=== PATIENT | male | born 1960 | race Caucasian/White ===

== ENCOUNTER 2020-12-15 11:17 | Inpatient (IN) ==
[2020-12-15 12:58] LABS: Basophils # 0.1 10*3/uL (0.0-0.2); Basophils % 0.9 % (0.0-0.8); Eosinophils # 0.7 10*3/uL (0.0-0.87); Hematocrit 39.4 VOL% (42.0-52.0); Immature Granulocytes % 0.3 %; Immature Granulocytes Absolute 0.03 #; Lymphocytes # 1.4 10*3/uL (1.4-4.0); Mean Corpuscular Volume 85.5 FL (87-102); Mean Platelet Volume 11.2 FL (9.6-12.0); Monocytes % 7.3 % (1.7-12.7); Neutrophils % 73.5 % (38.7-73.9); Platelet Count 270 T/CUMM (130-400); Red Blood Count 4.61 MC/CUMM (3.8-5.5); Red Cell Distribution Width 14.2 % (9.3-17.3); White Blood Count 11.3 T/CUMM (4-12)
[2020-12-15 13:33] LABS: Albumin 3.3 G/DL (3.4-5.0); Bilirubin,Total 0.6 MG/DL (0.20-1.00); Calcium 9.3 MG/DL (8.5-10.1); Osmolality,Calculated 253.2 MOS/KG (273-304); Total Protein 8.2 G/DL (6.4-8.2)
[2020-12-15] MEDS ORDERED: GLUCAGON 1 MG VIAL IM PRN (15:06)
[2020-12-15] MEDS ORDERED: DEXTROSE 50% 25 GM/50 ML VIAL IV PRN (15:06)
[2020-12-15] MEDS ORDERED: BISACODYL 5 MG TABLET PO PRN (15:07)
[2020-12-15] MEDS ORDERED: ALBUTEROL 2.5 MG/3 ML NEB RESP TX PRN (15:07)
[2020-12-15] MEDS ORDERED: ONDANSETRON 4 MG/2 ML VIAL IV PRN (15:07)
[2020-12-15] MEDS ORDERED: ACETAMINOPHEN 325 MG TABLET PO PRN (15:07)
[2020-12-15] MEDS: ENOXAPARIN 40 MG/0.4 ML SYRINGE SUBCUT SCH (17:20)
[2020-12-15] MEDS: SODIUM CHLORIDE 0.9% 1,000 ML IV SCH (17:20)
[2020-12-15] MEDS: MORPHINE 2 MG/1 ML SYRINGE IV PRN ×2 (19:46→23:38)
[2020-12-15] MEDS: CETIRIZINE 10 MG TABLET PO SCH (21:35)
[2020-12-16 05:34] LABS: Basophils # 0.1 10*3/uL (0.0-0.2); Basophils % 0.8 % (0.0-0.8); Eosinophils % 14.2 % (0.00-10.9); Hematocrit 37.3 VOL% (42.0-52.0); Hemoglobin 12.4 GM/DL (14.0-18.0); Immature Granulocytes % 0.4 %; Immature Granulocytes Absolute 0.05 #; Lymphocytes # 1.8 10*3/uL (1.4-4.0); Lymphocytes % 12.7 % (21.2-54.2); Mean Corpuscular HGB Conc 33.2 GM/DL (32-36); Mean Corpuscular Volume 86.1 FL (87-102); Monocytes % 6.4 % (1.7-12.7); Neutrophils % 65.5 % (38.7-73.9); Platelet Count 272 T/CUMM (130-400); Red Blood Count 4.33 MC/CUMM (3.8-5.5); Red Cell Distribution Width 14.5 % (9.3-17.3); White Blood Count 14.2 T/CUMM (4-12)
[2020-12-16] MEDS: SODIUM CHLORIDE 0.9% 1,000 ML IV SCH ×3 (06:00→17:02)
[2020-12-16 06:09] LABS: Band Neutrophils 4 % (0-10); Bilirubin,Total 0.5 MG/DL (0.20-1.00); Calcium 8.9 MG/DL (8.5-10.1); Eosinophils 15 % (0-10); Lymphocytes 10 % (20-55); Osmolality,Calculated 257.9 MOS/KG (273-304); Platelet Estimate Normal; Potassium 4.4 MMOL/L (3.5-5.1); Segmented Neutrophils 59 % (50-85); Total Cells Counted 100; Total Protein 7.5 G/DL (6.4-8.2)
[2020-12-16 06:10] LABS: Anisocytosis Slight
[2020-12-16] MEDS: MORPHINE 2 MG/1 ML SYRINGE IV PRN ×3 (06:11→20:39)
[2020-12-16] MEDS: CETIRIZINE 10 MG TABLET PO SCH (09:21)
[2020-12-16] MEDS: guaiFENesin/DM ER 600-30 MG TABLET PO PRN (09:21)
[2020-12-16] MEDS: KETOROLAC 30 MG/1 ML VIAL IV PRN ×2 (12:46→18:33)
[2020-12-16] MEDS ORDERED: AZITHROMYCIN 250 MG TABLET PO ONE (13:41)
[2020-12-16] MEDS: ENOXAPARIN 40 MG/0.4 ML SYRINGE SUBCUT SCH (17:00)
[2020-12-16] MEDS: cefTRIAXone 1,000 MG in SODIUM CHLORIDE 0.9% 100 ML IV SCH (18:33)
[2020-12-17] MEDS: KETOROLAC 30 MG/1 ML VIAL IV PRN ×4 (00:26→22:59)
[2020-12-17] MEDS: MORPHINE 2 MG/1 ML SYRINGE IV PRN ×3 (02:55→20:36)
[2020-12-17] MEDS: SODIUM CHLORIDE 0.9% 1,000 ML IV SCH ×2 (05:20→13:49)
[2020-12-17 06:06] LABS: Basophils # 0.1 10*3/uL (0.0-0.2); Basophils % 0.5 % (0.0-0.8); Eosinophils # 1.9 10*3/uL (0.0-0.87); Eosinophils % 17.4 % (0.00-10.9); Hemoglobin 11.4 GM/DL (14.0-18.0); Immature Granulocytes % 0.5 %; Immature Granulocytes Absolute 0.05 #; Lymphocytes # 1.7 10*3/uL (1.4-4.0); Lymphocytes % 15.6 % (21.2-54.2); Mean Corpuscular HGB Conc 32.6 GM/DL (32-36); Mean Corpuscular Volume 87.3 FL (87-102); Mean Platelet Volume 11.1 FL (9.6-12.0); Platelet Count 201 T/CUMM (130-400); Red Blood Count 4.01 MC/CUMM (3.8-5.5); Red Cell Distribution Width 14.4 % (9.3-17.3); White Blood Count 10.9 T/CUMM (4-12)
[2020-12-17 06:20] LABS: Calcium 8.2 MG/DL (8.5-10.1); Osmolality,Calculated 257.9 MOS/KG (273-304); Potassium 4.2 MMOL/L (3.5-5.1)
[2020-12-17 07:06] LABS: Anisocytosis 2+; Band Neutrophils 6 % (0-10); Burr Cells Few; Eosinophils 24 % (0-10); Lymphocytes 16 % (20-55); Ovalocytes Few; Platelet Estimate Normal; Segmented Neutrophils 45 % (50-85); Total Cells Counted 100
[2020-12-17] MEDS: AZITHROMYCIN 250 MG TABLET PO SCH (09:38)
[2020-12-17] MEDS: CETIRIZINE 10 MG TABLET PO SCH (09:38)
[2020-12-17] MEDS ORDERED: PHENOL 1.4% THROAT SPRAY 177 ML BOTTLE PO PRN (11:30)
[2020-12-17] MEDS: cefTRIAXone 1,000 MG in SODIUM CHLORIDE 0.9% 100 ML IV SCH (17:47)
[2020-12-18] MEDS: SODIUM CHLORIDE 0.9% 1,000 ML IV SCH ×3 (03:13→18:00)
[2020-12-18] MEDS: MORPHINE 2 MG/1 ML SYRINGE IV PRN ×3 (05:03→23:26)
[2020-12-18 05:17] LABS: Basophils # 0.1 10*3/uL (0.0-0.2); Basophils % 0.5 % (0.0-0.8); Eosinophils # 1.6 10*3/uL (0.0-0.87); Eosinophils % 15.3 % (0.00-10.9); Hematocrit 38.6 VOL% (42.0-52.0); Hemoglobin 12.6 GM/DL (14.0-18.0); Immature Granulocytes % 0.5 %; Immature Granulocytes Absolute 0.05 #; Lymphocytes # 1.7 10*3/uL (1.4-4.0); Lymphocytes % 15.7 % (21.2-54.2); Mean Corpuscular HGB Conc 32.6 GM/DL (32-36); Mean Corpuscular Volume 87.3 FL (87-102); Mean Platelet Volume 11.1 FL (9.6-12.0); Monocytes % 7.2 % (1.7-12.7); Neutrophils % 60.8 % (38.7-73.9); Platelet Count 225 T/CUMM (130-400); Red Blood Count 4.42 MC/CUMM (3.8-5.5); Red Cell Distribution Width 14.6 % (9.3-17.3); White Blood Count 10.6 T/CUMM (4-12)
[2020-12-18 05:43] LABS: Calcium 8.4 MG/DL (8.5-10.1); Osmolality,Calculated 268.1 MOS/KG (273-304); Potassium 5.6 MMOL/L (3.5-5.1)
[2020-12-18 05:45] LABS: PT Patient Result 10.7 SECS (10.5-12.0)
[2020-12-18 05:47] LABS: Anisocytosis 2+; Band Neutrophils 5 % (0-10); Burr Cells Few; Eosinophils 22 % (0-10); Lymphocytes 15 % (20-55); Macrocytosis Slight; Platelet Estimate Normal; Segmented Neutrophils 52 % (50-85); Total Cells Counted 100
[2020-12-18] MEDS: KETOROLAC 30 MG/1 ML VIAL IV PRN ×2 (06:02→18:00)
[2020-12-18] MEDS: guaiFENesin/DM ER 600-30 MG TABLET PO PRN (09:27)
[2020-12-18] MEDS: AZITHROMYCIN 250 MG TABLET PO SCH (09:27)
[2020-12-18] MEDS: CETIRIZINE 10 MG TABLET PO SCH (09:27)
[2020-12-18] MEDS: cefTRIAXone 1,000 MG in SODIUM CHLORIDE 0.9% 100 ML IV SCH (17:59)
[2020-12-19] MEDS: KETOROLAC 30 MG/1 ML VIAL IV PRN ×3 (04:36→16:50)
[2020-12-19 05:34] LABS: Basophils # 0.1 10*3/uL (0.0-0.2); Basophils % 0.6 % (0.0-0.8); Eosinophils # 1.6 10*3/uL (0.0-0.87); Hematocrit 37.6 VOL% (42.0-52.0); Hemoglobin 12.4 GM/DL (14.0-18.0); Immature Granulocytes % 0.4 %; Immature Granulocytes Absolute 0.05 #; Lymphocytes # 2.2 10*3/uL (1.4-4.0); Lymphocytes % 17.8 % (21.2-54.2); Mean Corpuscular Volume 87.2 FL (87-102); Mean Platelet Volume 11.5 FL (9.6-12.0); Monocytes % 6.4 % (1.7-12.7); Neutrophils % 61.8 % (38.7-73.9); Platelet Count 248 T/CUMM (130-400); Red Blood Count 4.31 MC/CUMM (3.8-5.5); Red Cell Distribution Width 14.6 % (9.3-17.3); White Blood Count 12.4 T/CUMM (4-12)
[2020-12-19 05:58] LABS: Band Neutrophils 1 % (0-10); Eosinophils 20 % (0-10); Hypochromasia 1+; Lymphocytes 16 % (20-55); Microcytosis Slight; Segmented Neutrophils 61 % (50-85); Total Cells Counted 100
[2020-12-19 05:59] LABS: Calcium 8.4 MG/DL (8.5-10.1); Osmolality,Calculated 261.7 MOS/KG (273-304); Ovalocytes Slight; Platelet Estimate Normal; Potassium 4.5 MMOL/L (3.5-5.1)
[2020-12-19] MEDS: MORPHINE 2 MG/1 ML SYRINGE IV PRN ×3 (08:13→20:41)
[2020-12-19] MEDS ORDERED: DIAZEPAM 5 MG TABLET PO ONE (09:00)
[2020-12-19] MEDS: AZITHROMYCIN 250 MG TABLET PO SCH (10:00)
[2020-12-19] MEDS: CETIRIZINE 10 MG TABLET PO SCH (10:00)
[2020-12-19] MEDS: SODIUM CHLORIDE 0.9% 1,000 ML IV SCH (16:13)
[2020-12-19] MEDS: cefTRIAXone 1,000 MG in SODIUM CHLORIDE 0.9% 100 ML IV SCH (17:53)
[2020-12-20] MEDS: KETOROLAC 30 MG/1 ML VIAL IV PRN ×3 (00:51→22:10)
[2020-12-20] MEDS: MORPHINE 2 MG/1 ML SYRINGE IV PRN ×5 (01:47→22:08)
[2020-12-20] MEDS: SODIUM CHLORIDE 0.9% 1,000 ML IV SCH ×2 (01:50→10:37)
[2020-12-20] MEDS: ALBUTEROL/IPRATROPIUM 3 ML NEB RESP TX SCH ×4 (02:31→20:04)
[2020-12-20 06:24] LABS: Basophils # 0.1 10*3/uL (0.0-0.2); Basophils % 0.8 % (0.0-0.8); Eosinophils # 1.5 10*3/uL (0.0-0.87); Eosinophils % 14.5 % (0.00-10.9); Hematocrit 37.7 VOL% (42.0-52.0); Hemoglobin 12.5 GM/DL (14.0-18.0); Immature Granulocytes % 0.5 %; Immature Granulocytes Absolute 0.05 #; Lymphocytes # 1.8 10*3/uL (1.4-4.0); Mean Corpuscular HGB Conc 33.2 GM/DL (32-36); Mean Corpuscular Volume 87.5 FL (87-102); Mean Platelet Volume 11.7 FL (9.6-12.0); Monocytes % 6.8 % (1.7-12.7); Neutrophils % 59.4 % (38.7-73.9); Platelet Count 243 T/CUMM (130-400); Red Blood Count 4.31 MC/CUMM (3.8-5.5); Red Cell Distribution Width 14.8 % (9.3-17.3); White Blood Count 10.1 T/CUMM (4-12)
[2020-12-20 06:51] LABS: Eosinophils 18 % (0-10); Hypochromasia Slight; Lymphocytes 14 % (20-55); Microcytosis Slight; Ovalocytes Slight; Platelet Estimate Adequate; Segmented Neutrophils 63 % (50-85); Total Cells Counted 100
[2020-12-20 07:04] LABS: Calcium 8.3 MG/DL (8.5-10.1); Osmolality,Calculated 265.4 MOS/KG (273-304); Potassium 3.9 MMOL/L (3.5-5.1)
[2020-12-20] MEDS: AZITHROMYCIN 250 MG TABLET PO SCH (08:07)
[2020-12-20] MEDS: CETIRIZINE 10 MG TABLET PO SCH (08:07)
[2020-12-20] MEDS: cefTRIAXone 1,000 MG in SODIUM CHLORIDE 0.9% 100 ML IV SCH (18:14)
[2020-12-21] MEDS: ALBUTEROL/IPRATROPIUM 3 ML NEB RESP TX SCH ×2 (00:39→07:02)
[2020-12-21] MEDS: SODIUM CHLORIDE 0.9% 1,000 ML IV SCH (04:49)
[2020-12-21 05:38] LABS: Basophils # 0.1 10*3/uL (0.0-0.2); Basophils % 0.7 % (0.0-0.8); Eosinophils # 1.3 10*3/uL (0.0-0.87); Hematocrit 35.7 VOL% (42.0-52.0); Hemoglobin 11.7 GM/DL (14.0-18.0); Immature Granulocytes % 0.5 %; Immature Granulocytes Absolute 0.05 #; Lymphocytes # 1.5 10*3/uL (1.4-4.0); Lymphocytes % 15.1 % (21.2-54.2); Mean Corpuscular HGB Conc 32.8 GM/DL (32-36); Mean Corpuscular Volume 88.1 FL (87-102); Monocytes % 7.2 % (1.7-12.7); Neutrophils % 63.5 % (38.7-73.9); Platelet Count 229 T/CUMM (130-400); Red Blood Count 4.05 MC/CUMM (3.8-5.5); White Blood Count 9.8 T/CUMM (4-12)
[2020-12-21 05:45] LABS: INR 0.9; PT Patient Result 10.3 SECS (10.5-12.0)
[2020-12-21 06:02] LABS: Eosinophils 11 % (0-10); Hypochromasia 1+; Lymphocytes 12 % (20-55); Microcytosis 1+; Platelet Estimate Adequate; Segmented Neutrophils 73 % (50-85); Total Cells Counted 100
[2020-12-21 06:10] LABS: Calcium 8.2 MG/DL (8.5-10.1); Potassium 4.4 MMOL/L (3.5-5.1)
[2020-12-21] MEDS ORDERED: MEPERIDINE 50 MG/1 ML VIAL IM ONE (07:00)
[2020-12-21] MEDS ORDERED: PROMETHAZINE 25 MG/1 ML VIAL IM ONE (07:00)
[2020-12-21] MEDS ORDERED: LIDOCAINE 2% VISCOUS 100 ML BOTTLE SWISH/SPIT ONE (07:30)
[2020-12-21] MEDS ORDERED: LIDOCAINE 2% 20 ML VIAL RESP TX ONE (07:30)
[2020-12-21] MEDS ORDERED: MIDAZOLAM 2 MG/2 ML VIAL IV ONE (07:30)
[2020-12-21] MEDS ORDERED: LIDOCAINE 1% 20 ML VIAL MISC INJ ONE (07:30)
[2020-12-21 08:11] VITALS: BP 134/80
[2020-12-21] MEDS: CETIRIZINE 10 MG TABLET PO SCH (09:13)
== END 2020-12-21 11:04 | DRG 180 ==
LOC: N.ED 11:17 → SUATTDRO 15:06 → N.EDINP 15:06 → N.3W 17:30
PROVIDERS: ADMIT Emergency Medicine; ATTEND Hospitalist

== ENCOUNTER 2020-12-26 22:25 | Inpatient (IN) ==
[2020-12-26] MEDS ORDERED: KETOROLAC 30 MG/1 ML VIAL IV STA (22:50)
[2020-12-26] MEDS ORDERED: METHOCARBAMOL 1,000 MG/10 ML VIAL IV STA (22:50)
[2020-12-27 00:04] LABS: Basophils # 0.1 10*3/uL (0.0-0.2); Basophils % 0.9 % (0.0-0.8); Eosinophils # 0.6 10*3/uL (0.0-0.87); Eosinophils % 5.6 % (0.00-10.9); Hemoglobin 12.7 GM/DL (14.0-18.0); Immature Granulocytes % 0.4 %; Immature Granulocytes Absolute 0.04 #; Lymphocytes # 1.4 10*3/uL (1.4-4.0); Lymphocytes % 13.8 % (21.2-54.2); Mean Corpuscular HGB Conc 34.3 GM/DL (32-36); Monocytes % 8.1 % (1.7-12.7); Neutrophils % 71.2 % (38.7-73.9); Platelet Count 281 T/CUMM (130-400); Red Blood Count 4.46 MC/CUMM (3.8-5.5); Red Cell Distribution Width 14.6 % (9.3-17.3); White Blood Count 9.8 T/CUMM (4-12)
[2020-12-27 00:33] LABS: Albumin 3.1 G/DL (3.4-5.0); Bilirubin,Total 0.4 MG/DL (0.20-1.00); Osmolality,Calculated 241.1 MOS/KG (273-304)
[2020-12-27] MEDS ORDERED: DEXTROSE 50% 25 GM/50 ML VIAL IV PRN (01:45)
[2020-12-27] MEDS ORDERED: GLUCAGON 1 MG VIAL IM PRN (01:45)
[2020-12-27] MEDS ORDERED: ACETAMINOPHEN 325 MG TABLET PO PRN (01:45)
[2020-12-27] MEDS: SODIUM CHLORIDE 0.9% 1,000 ML IV SCH ×4 (04:40→21:22)
[2020-12-27] MEDS: CYCLOBENZAPRINE 10 MG TABLET PO PRN ×4 (04:53→23:17)
[2020-12-27] MEDS: ALBUTEROL/IPRATROPIUM 3 ML NEB RESP TX SCH ×3 (07:00→19:13)
[2020-12-27 07:17] LABS: Calcium 8.9 MG/DL (8.5-10.1); Osmolality,Calculated 244.8 MOS/KG (273-304); Potassium 3.7 MMOL/L (3.5-5.1)
[2020-12-27] MEDS: MORPHINE 2 MG/1 ML SYRINGE IV PRN ×2 (18:57→23:20)
[2020-12-28] MEDS: KETOROLAC 30 MG/1 ML VIAL IV PRN ×4 (00:20→20:45)
[2020-12-28] MEDS: ALBUTEROL/IPRATROPIUM 3 ML NEB RESP TX SCH ×2 (01:00→21:10)
[2020-12-28 05:20] LABS: Basophils # 0.1 10*3/uL (0.0-0.2); Basophils % 0.6 % (0.0-0.8); Eosinophils # 0.7 10*3/uL (0.0-0.87); Eosinophils % 9.2 % (0.00-10.9); Hematocrit 33.6 VOL% (42.0-52.0); Hemoglobin 11.1 GM/DL (14.0-18.0); Immature Granulocytes % 0.4 %; Immature Granulocytes Absolute 0.03 #; Lymphocytes # 1.5 10*3/uL (1.4-4.0); Lymphocytes % 19.4 % (21.2-54.2); Mean Corpuscular Volume 86.8 FL (87-102); Mean Platelet Volume 10.8 FL (9.6-12.0); Monocytes % 10.1 % (1.7-12.7); Neutrophils % 60.3 % (38.7-73.9); Platelet Count 214 T/CUMM (130-400); Red Blood Count 3.87 MC/CUMM (3.8-5.5); White Blood Count 7.9 T/CUMM (4-12)
[2020-12-28] MEDS: CYCLOBENZAPRINE 10 MG TABLET PO PRN ×2 (05:25→20:43)
[2020-12-28] MEDS: SODIUM CHLORIDE 0.9% 1,000 ML IV SCH ×3 (05:27→22:05)
[2020-12-28 06:06] LABS: Calcium 8.4 MG/DL (8.5-10.1); Osmolality,Calculated 262.5 MOS/KG (273-304); Potassium 3.8 MMOL/L (3.5-5.1)
[2020-12-28] MEDS: MORPHINE 2 MG/1 ML SYRINGE IV PRN ×4 (07:24→20:48)
[2020-12-28] MEDS: ENOXAPARIN 40 MG/0.4 ML SYRINGE SUBCUT SCH (15:00)
[2020-12-29] MEDS: MORPHINE 2 MG/1 ML SYRINGE IV PRN ×5 (01:26→21:27)
[2020-12-29] MEDS: ALBUTEROL/IPRATROPIUM 3 ML NEB RESP TX SCH ×4 (01:30→19:28)
[2020-12-29] MEDS: KETOROLAC 30 MG/1 ML VIAL IV PRN ×3 (03:36→19:24)
[2020-12-29 06:16] LABS: Basophils # 0.1 10*3/uL (0.0-0.2); Basophils % 0.7 % (0.0-0.8); Eosinophils # 0.8 10*3/uL (0.0-0.87); Eosinophils % 9.9 % (0.00-10.9); Hemoglobin 11.1 GM/DL (14.0-18.0); Immature Granulocytes % 0.4 %; Immature Granulocytes Absolute 0.03 #; Lymphocytes # 1.6 10*3/uL (1.4-4.0); Lymphocytes % 18.9 % (21.2-54.2); Mean Corpuscular HGB Conc 32.6 GM/DL (32-36); Mean Corpuscular Volume 89.5 FL (87-102); Mean Platelet Volume 10.4 FL (9.6-12.0); Monocytes % 8.5 % (1.7-12.7); Neutrophils % 61.6 % (38.7-73.9); Platelet Count 219 T/CUMM (130-400); Red Cell Distribution Width 15.4 % (9.3-17.3); White Blood Count 8.5 T/CUMM (4-12)
[2020-12-29 06:32] LABS: Calcium 8.5 MG/DL (8.5-10.1); Osmolality,Calculated 261.5 MOS/KG (273-304); Potassium 4.7 MMOL/L (3.5-5.1)
[2020-12-29] MEDS: CYCLOBENZAPRINE 10 MG TABLET PO PRN (06:55)
[2020-12-29] MEDS: SODIUM CHLORIDE 0.9% 1,000 ML IV SCH ×3 (06:57→19:02)
[2020-12-29] MEDS: ENOXAPARIN 40 MG/0.4 ML SYRINGE SUBCUT SCH (14:40)
[2020-12-30] MEDS: ALBUTEROL/IPRATROPIUM 3 ML NEB RESP TX SCH ×6 (00:28→19:02)
[2020-12-30] MEDS: KETOROLAC 30 MG/1 ML VIAL IV PRN ×4 (01:14→20:10)
[2020-12-30] MEDS: MORPHINE 2 MG/1 ML SYRINGE IV PRN ×6 (01:54→23:01)
[2020-12-30] MEDS: SODIUM CHLORIDE 0.9% 1,000 ML IV SCH ×3 (02:51→18:58)
[2020-12-30 06:33] LABS: Basophils # 0.1 10*3/uL (0.0-0.2); Basophils % 0.7 % (0.0-0.8); Eosinophils # 0.8 10*3/uL (0.0-0.87); Eosinophils % 9.2 % (0.00-10.9); Hematocrit 32.3 VOL% (42.0-52.0); Hemoglobin 10.7 GM/DL (14.0-18.0); Immature Granulocytes % 0.5 %; Immature Granulocytes Absolute 0.04 #; Lymphocytes # 1.7 10*3/uL (1.4-4.0); Lymphocytes % 18.9 % (21.2-54.2); Mean Corpuscular HGB Conc 33.1 GM/DL (32-36); Mean Corpuscular Volume 87.3 FL (87-102); Mean Platelet Volume 12.1 FL (9.6-12.0); Monocytes % 9.5 % (1.7-12.7); Neutrophils % 61.2 % (38.7-73.9); Platelet Count 202 T/CUMM (130-400); Red Cell Distribution Width 15.5 % (9.3-17.3); White Blood Count 8.9 T/CUMM (4-12)
[2020-12-30 07:15] LABS: Calcium 8.4 MG/DL (8.5-10.1); Osmolality,Calculated 268.1 MOS/KG (273-304); Potassium 4.1 MMOL/L (3.5-5.1)
[2020-12-30] MEDS: ENOXAPARIN 40 MG/0.4 ML SYRINGE SUBCUT SCH (14:17)
[2020-12-31] MEDS: ALBUTEROL/IPRATROPIUM 3 ML NEB RESP TX SCH ×4 (00:03→20:04)
[2020-12-31] MEDS: SODIUM CHLORIDE 0.9% 1,000 ML IV SCH ×3 (03:02→20:10)
[2020-12-31] MEDS: MORPHINE 2 MG/1 ML SYRINGE IV PRN ×5 (03:04→20:12)
[2020-12-31] MEDS: KETOROLAC 30 MG/1 ML VIAL IV PRN ×3 (03:54→18:13)
[2020-12-31] MEDS: ENOXAPARIN 40 MG/0.4 ML SYRINGE SUBCUT SCH (14:44)
[2021-01-01] MEDS: KETOROLAC 30 MG/1 ML VIAL IV PRN ×4 (00:17→20:57)
[2021-01-01] MEDS: ALBUTEROL/IPRATROPIUM 3 ML NEB RESP TX SCH ×4 (00:23→19:40)
[2021-01-01] MEDS: MORPHINE 2 MG/1 ML SYRINGE IV PRN ×5 (00:52→21:28)
[2021-01-01] MEDS: SODIUM CHLORIDE 0.9% 1,000 ML IV SCH ×3 (03:41→20:49)
[2021-01-01 05:17] LABS: Basophils # 0.1 10*3/uL (0.0-0.2); Basophils % 0.8 % (0.0-0.8); Eosinophils % 12.4 % (0.00-10.9); Hematocrit 32.9 VOL% (42.0-52.0); Hemoglobin 10.3 GM/DL (14.0-18.0); Immature Granulocytes % 0.4 %; Immature Granulocytes Absolute 0.03 #; Lymphocytes # 1.3 10*3/uL (1.4-4.0); Lymphocytes % 15.9 % (21.2-54.2); Mean Corpuscular HGB Conc 31.3 GM/DL (32-36); Mean Corpuscular Volume 89.6 FL (87-102); Mean Platelet Volume 11.4 FL (9.6-12.0); Monocytes % 8.4 % (1.7-12.7); Neutrophils % 62.1 % (38.7-73.9); Platelet Count 238 T/CUMM (130-400); Red Blood Count 3.67 MC/CUMM (3.8-5.5); Red Cell Distribution Width 15.5 % (9.3-17.3)
[2021-01-01 05:40] LABS: Calcium 8.7 MG/DL (8.5-10.1); Potassium 4.6 MMOL/L (3.5-5.1)
[2021-01-01 05:51] LABS: Eosinophils 13 % (0-10); Lymphocytes 20 % (20-55); Platelet Estimate Normal; Segmented Neutrophils 56 % (50-85); Total Cells Counted 100
[2021-01-01] MEDS: ENOXAPARIN 40 MG/0.4 ML SYRINGE SUBCUT SCH (14:36)
[2021-01-02] MEDS: ALBUTEROL/IPRATROPIUM 3 ML NEB RESP TX SCH ×3 (00:10→13:33)
[2021-01-02] MEDS: MORPHINE 2 MG/1 ML SYRINGE IV PRN ×4 (01:23→17:28)
[2021-01-02] MEDS: SODIUM CHLORIDE 0.9% 1,000 ML IV SCH ×3 (04:30→20:30)
[2021-01-02] MEDS: ENOXAPARIN 40 MG/0.4 ML SYRINGE SUBCUT SCH (16:07)
[2021-01-03] MEDS: SODIUM CHLORIDE 0.9% 1,000 ML IV SCH (04:14)
[2021-01-03] MEDS: ALBUTEROL/IPRATROPIUM 3 ML NEB RESP TX SCH (07:19)
[2021-01-03 10:23] VITALS: BP 142/88
== END 2021-01-03 11:31 | DRG 948 ==
LOC: EDBD → EDUNIT# → N.ED 22:25 → SUATTDRO 12-27 01:45 → N.EDINP 12-27 01:45 → N.3W 12-27 04:15
PROVIDERS: ADMIT Internal Medicine; ATTEND Hospitalist